=== PATIENT | female | born 1995 | race Hispanic/Latino ===

== ENCOUNTER 2019-01-18 15:17 | Outpatient (CLI) | payer OTHER ==
--- NOTE | 2019-01-18 15:55 | ULT ---
LEFT BREAST ULTRASOUND: HISTORY: Left breast pain from 9 o'clock to 6 o'clock position. Occasional white discharge. TECHNIQUE: Multiplanar, adames scale, and color Doppler images were obtained in a limited ultrasound of the left b reast. FINDINGS: Normal-appearing breast parenchyma is seen. No cyst is identified. No suspicious shadowing or mass is present. IMPRESSION: BIRADS category 1 - negative. Annual screening mammography is recommended at age of 40. POS: [facility]
== END 2019-01-18 15:18 | disposition home or self-care (01) ==
LOC: BICULT 15:17
PROVIDERS: ATTEND Family Medicine
DX: N64.4 Mastodynia (principal); N64.52 Nipple discharge